=== PATIENT | male | born 1950 | race Caucasian/White ===

== ENCOUNTER 2017-07-20 18:43 | Inpatient (IN) ==
--- NOTE | 2017-07-20 19:13 | Emergency Department Note ---
Disposition Clinical Impression: Pancreatitis Disposition: Admitted As Inpatient Condition: Good Reasons to Return/Additional Instructions: your blood pressure was elevated today so please follow up with your family doctor for a recheck Referrals: Humphrey Shipley DO [Primary Care Provider] - Forms: ED Satisfaction Letter, Work/School Release Time of Disposition: 21:44 Abdominal Pain HPI - General Chief Complaint: ED Abdominal Pain Stated Complaint: Abdominal Pain, Back Pain Time Seen by Provider: 07/20/17 19:00 Source: patient, EMS Mode of arrival: ambulatory Limitations: no limitations Nursing Notes Reviewed: Yes Vital Signs Reviewed: Yes - History of Present Illness Pt Subjective Complaint: abdominal pain Onset (ago): hour(s) (sveral) Consistency: intermittent Pain Severity: moderate Pain Scale: 2 Quality: cannot describe Improves with: nothing Worsens with: nothing Associated symptoms: Denies: nausea, vomiting, diarrhea, fever, chills, constipation, dysuria - Related Data Home Medications Medication Instructions Recorded Confirmed DiphenhydraMINE [Benadryl] 1 cap PO HS 07/20/17 07/20/17 Losartan/Hydrochlorothiazide 1 each PO DAILY 07/20/17 07/20/17 [Hyzaar 100-12.5 Tablet] Ranitidine HCl [Zantac] 150 mg PO BID 07/20/17 07/20/17 Allergies Allergy/AdvReac Type Severity Reaction Status Date / Time No Known Allergies Allergy Verified 06/22/15 14:47 All systems ED: reviewed and negative except as stated. Limitations: ROS unobtainable due to patients medical condition (patients family provides the information secondary to the patients chronic ) Constitutional: Denies: fever, chills, weakness, weight change Gastrointestinal: Reports: abdominal pain. Denies: nausea, vomiting Abdominal Pain PMH - Past Medical History Medical history: Reports: arthritis, hypertension, myocardial infarction, other (Cerebral palsy) Male Surgical History: Reports: orthopedic, other Psychiatric history: Reports: no psych history - Social History Smoking status: Never smoker Alcohol use: Reports: none Drug use: Reports: none Physical Exam - General Limitations: physical limitation, other General appearance: alert - Head Head exam: atraumatic, normocephalic, normal inspection - Eye Eye exam: Present: normal appearance, PERRL, EOMI - ENT ENT exam: normal exam, normal oropharynx, mucous membranes moist - Neck Neck exam: Present: normal inspection, full ROM, trachea midline - Chest Chest inspection: Present: normal inspection, symmetric chest wall rise - Respiratory Respiratory exam: Present: normal lung sounds bilaterally - Cardiovascular Cardiovascular exam: Present: regular rate, normal rhythm, normal heart sounds - Abdominal Exam Abdominal exam: Present: soft, tenderness, normal bowel sounds - Neurological Exam Neurological exam: Present: alert, oriented X3 - Psychiatric Psychiatric exam: Present: normal affect, normal mood - Skin Skin exam: Present: warm, dry, intact Course Vital Signs Temperature 97.4 F L 07/20/17 18:49 Pulse Rate 105 07/20/17 18:49 Respiratory Rate 14 07/20/17 18:49 Blood Pressure 135/75 07/20/17 18:49 O2 Sat by Pulse Oximetry 89 07/20/17 18:49 Temperature 97.4 F L 07/20/17 18:49 Pulse Rate 105 07/20/17 18:49 Respiratory Rate 14 07/20/17 18:49 Blood Pressure 135/75 07/20/17 18:49 O2 Sat by Pulse Oximetry 89 07/20/17 18:49 Oxygen Delivery Oxygen Delivery Nasal Cannula Abdominal Pain - MDM Narrative Medical decision making narrative: Case was discussed with Dr. Hutton who accepts admission. - Differential Diagnosis Differential Diagnosis: Likely: AAA, diverticulitis, diverticulosis - Lab Data Lab results reviewed: Yes I reviewed the patient's lab results. Result diagrams: 07/20/17 19:22 07/20/17 19:22 Lab Results 07/20/17 07/20/17 07/20/17 Range/Units 19:22 19:22 19:22 WBC 8.5 (4.3-11.1) K/mcL RBC 4.59 (4.19-5.50) M/mcL Hgb 14.7 (12.9-16.9) g/dL Hct 42.2 (37.5-50.1) % MCV 91.9 (83.0-100.0) fL MCH 32.0 (28.0-33.3) pg MCHC 34.8 (31.6-35.5) g/dL RDW 12.8 (11.5-14.5) % Plt Count 233 (140-400) K/mcL MPV 9.2 L (9.4-12.4) fL Immature Gran % 0.4 (0-4) % Seg Neutrophils % 91.0 % Lymphocytes % 7.2 % Monocytes % 1.1 % Eosinophils % 0.1 % Basophils % 0.2 % Neutrophils # 7.8 (1.6-8.9) K/mcL Lymphocytes # 0.6 (0.6-4.6) K/mcL Monocytes # 0.1 (0.0-1.3) K/mcL Eosinophils # 0.0 (0.0-0.6) K/mcL Basophils # 0.0 (0.0-0.2) K/mcL Sodium 141 (136-145) mEq/L Potassium 3.6 (3.5-4.5) mEq/L Chloride 101 (98-109) mEq/L Carbon Dioxide 27 (19-29) mEq/L BUN 16 (8-26) mg/dL Creatinine 1.64 H (0.72-1.25) mg/dL Est GFR ( Amer) 51 L (> 60) Est GFR (Non-Af Amer) 42 L (> 60) BUN/Creatinine Ratio 10 (6-26) Glucose 190 H (70-99) mg/dL Calculated Osmolality 298 (280-300) Calcium 10.1 (8.6-10.8) mg/dL Total Bilirubin 1.6 H (0.2-1.2) mg/dL AST 801 H (5-34) Units/L ALT 461 H (0-55) Units/L Alkaline Phosphatase 130 H (38-126) Units/L Troponin I 0.02 (0-0.03) ng/mL Serum Total Protein 7.3 (6.0-8.3) g/dL Albumin 3.7 (3.5-5.0) g/dL Globulin 3.6 H (2.4-3.5) g/dL Albumin/Globulin Ratio 1.0 L (1.1-2.2) Amylase 662 H (25-125) Units/L - Radiology Data Radiology results reviewed: Yes I reviewed the patient's radiology results. - EKG Data EKG attestation: Yes I reviewed and interpreted this EKG. EKG results narrative: EKG shows a relative sinus tachycardia with a rate of [address] elevation. Some poor R-wave progression noted QRS duration 85 ms R axis is -6 degrees
[2017-07-20 19:32] LABS: Basophils % 0.2 %; Eosinophils % 0.1 %; Hematocrit 42.2 % (37.5-50.1); Hemoglobin 14.7 g/dL (12.9-16.9); Immature Granulocytes % 0.4 % (0-4); Lymphocytes # 0.6 K/mcL (0.6-4.6); Lymphocytes % 7.2 %; Mean Corpuscular HGB Conc 34.8 g/dL (31.6-35.5); Mean Corpuscular Volume 91.9 fL (83.0-100.0); Mean Platelet Volume 9.2 fL (9.4-12.4); Monocytes # 0.1 K/mcL (0.0-1.3); Monocytes % 1.1 %; Neutrophils # 7.8 K/mcL (1.6-8.9); Platelet Count 233 K/mcL (140-400); Red Blood Count 4.59 M/mcL (4.19-5.50); Red Cell Distribution Width 12.8 % (11.5-14.5)
[2017-07-20 19:54] LABS: Albumin 3.7 g/dL (3.5-5.0); Bilirubin,Total 1.6 mg/dL (0.2-1.2); Calcium 10.1 mg/dL (8.6-10.8); Globulin 3.6 g/dL (2.4-3.5); Potassium 3.6 mEq/L (3.5-4.5); Total Protein 7.3 g/dL (6.0-8.3)
[2017-07-20 20:42] LABS: Bilirubin,Urine Negative (Negative); Blood,Urine Negative (Negative); Clarity,Urine Clear (Clear); Color,Urine Yellow (Yellow); Glucose,Urine (UA) Normal (Normal); Ketones,Urine Negative (Negative); Leukocyte Esterase,Urine Negative (Negative); Nitrite,Urine Negative (Negative); Protein,Urine Negative (Neg-Trace); Urobilinogen,Urine Normal (Normal)
[2017-07-20] MEDS ORDERED: *HR* HYDROmorphone (PF) 1 MG/ML SYRINGE IVP ONE (21:18)
[2017-07-20] MEDS ORDERED: Ondansetron 4 MG/2 ML VIAL IVP ONE (21:18)
[2017-07-20] MEDS ORDERED: Ondansetron 4 MG/2 ML VIAL ONE (21:57)
[2017-07-20] MEDS: Ondansetron 4 MG/2 ML VIAL IVP ONE ×2 (21:59→22:05)
[2017-07-20] MEDS ORDERED: *HR* HYDROmorphone (PF) 1 MG/ML SYRINGE IVP PRN (22:51)
[2017-07-20] MEDS: *HR* Promethazine 25 MG/ML VIAL IVP PRN (23:21)
[2017-07-21] MEDS: *HR* Promethazine 25 MG/ML VIAL IVP PRN (05:18)
[2017-07-21] MEDS ORDERED: Ondansetron 4 MG/2 ML VIAL IVP PRN (07:20)
--- NOTE | 2017-07-21 11:57 | Internal Med History&Physical ---
Date of Encounter: 07/21/17 Time of Encounter: 11:15 Assessment and Plan (1) Abdominal pain Current visit: Yes Status: Acute Lab review shows significant elevation of lipase, amylase, and LFTs. The abdominal pelvic CT however did not show abnormalities of the pancreas or biliary tract dilatation. An abdominal ultrasound has been ordered for further evaluation. Repeat labs will be done in a.m. Hyzaar will be held and IV fluids given. Qualifiers: Abdominal location: lower abdomen, unspecified Qualified Code(s): R10.30 - Lower abdominal pain, unspecified (2) CKD (chronic kidney disease) stage 3, GFR 30-59 ml/min Current visit: Yes Status: Acute Presumed. Will hold Hyzaar and give IV fluids and recheck labs in a.m. (3) Hypertension Current visit: Yes Status: Chronic We will hold Hyzaar due to azotemia and monitor blood pressure. Qualifiers: Hypertension type: essential hypertension Qualified Code(s): I10 - Essential (primary) hypertension Internal Medicine - H&P: HPI Chief complaint: Abdominal pain and vomiting Admitted From: Home Plans for Post Hospital Care: Home History of present illness: Mr. Brown is a 66 year old male who came to emergency room after he had complaints of abdominal pain and an episode of vomiting at home. He was evaluated in emergency room and found to have significant elevations of amylase , lipase, and transaminases. Abdominal CT did not show pancreatic or biliary abnormality other than questionable thickening of the gallbladder wall circumferentially. He was admitted to [facility] floor for ongoing care needs. He has cerebral palsy and could not give any reliable history. His family reports he had similar pain complaints in 2016 and underwent evaluation [facility] [place]. Family was told there was a small abdominal aortic aneurysm present. No other explanation was offered for his abdominal pain. He has continued to have occasional episodes of abdominal pain but frequently seemed to improve after having a bowel movement. He does not have diagnosed disorders of his liver gallbladder or exocrine pancreas. Past Med Surg Social Fam HX - Past Medical History Medical history: aortic aneurysm, arthritis, hypertension, myocardial infarction , other Psychiatric history: no psych history - Past Surgical History Surgical History: no surgical history - Social History Smoking Status: Never smoker Smokeless Tobacco Status: No Alcohol use: none Drug use: none Internal Medicine - H&P: Meds DiphenhydraMINE [Benadryl] 1 cap PO HS 07/20/17 [History] Losartan/Hydrochlorothiazide [Hyzaar 100-12.5 Tablet] 1 each PO DAILY 07/20/17 [ History] Ranitidine HCl [Zantac] 150 mg PO BID 07/20/17 [History] 3 Allergy/AdvReac Type Severity Reaction Status Date / Time No Known Allergies Allergy Verified 06/22/15 14:47 All Systems PM: A 10-system review of systems was performed and is negative for pertinent findings except as documented above in the HPI. Review of systems: Review of systems is obtained from family members since the patient could not give reliable history. Gen.: His weight has been stable past months Cardiovascular: He has a history of hypertension but no documented heart failure DVT or pulmonary embolus. There was a questionable [place] approximately year 1999. Respiratory: He is a lifelong nonsmoker and has no known chronic lung disease GI: As per history of present illness : He has had right renal cyst documented on September [address] that appeared stable at 4.[address] scan done last evening in the emergency room. He had slight prostate enlargement on CT. He does not have other known kidney bladder prostate disorders. Neurologic: He has cerebral palsy. There have been no large distribution strokes or seizures. Endocrine: There is no known diabetes thyroid disease or hyperlipidemia Hematology/oncology: He has been diagnosed with mycosis fungoides. There is no other known anemia or internal malignancies. Psychiatric: There is no known anxiety depression or other mental health issues Musk skeletal: He has DJD but no known gout other bone joint or muscle disorders. - Constitutional Vitals: Temp Pulse Resp BP Pulse Ox 98.9 F 89 18 119/72 98 07/21/17 08:00 07/21/17 08:00 07/21/17 08:00 07/21/17 08:00 07/21/17 08:00 Exam: Gen.: He is a well-developed well-nourished male sitting in a chair at bedside who appears in no acute distress HEENT: Head is atraumatic and normal cephalic. Eyes: He has a disconjugate gaze appears to have right exotropia. There is no scleral icterus. Mouth: Mucosa is moist Neck: Supple and nontender. There is no thyromegaly or adenopathy noted. Heart: Regular without murmurs gallops or ectopics Lungs: No wheezes or crackles are heard. Abdomen: Soft and nontender. No masses or guarding are noted. Exam is limited because he is in the seated position. Extremities: There is no cyanosis or edema noted. He has bilateral foot deformities. He is nonambulatory. Dorsalis pedis and posterior tibial pulses are trace palpable bilaterally. Neurologic: Mental status: He could not give reliable history. He follows commands generally. He is able to answer a few yes/no questions. Cranial nerves: Smile is symmetric. Forehead wrinkles bilaterally. Tongue protrudes midline. EOMI. Motor: He does not understand holding his arms outstretched test for pronator drift. Cerebellar: Not tested Skin: He has erythema of his feet and lower abdominal wall consistent with mycosis fungoides. Internal Med - H&P Results - Labs CBC & Chem 7: 07/20/17 19:22 07/20/17 19:22 - VTE Reasons for not Prescribing Prophylaxis: Treatment not Indicated - Low risk for VTE
[2017-07-21] MEDS: 0.45 % Sodium Chloride w/KCl 20 MEQ/1,000 ML MLS IVC SCH ×2 (12:29→23:55)
--- NOTE | 2017-07-21 12:38 | Electrocardiograph Report ---
[address] [place], [place] [address] Test Date: 2017-07-20 Pat Name: Khadar Brown Department: 9201 Room: [facility] Gender: M [employer]: GUALBERTO : 1950 Requested By: Major Call Order Number: [id number] Reading MD: Monisha Brooks Measurements Intervals [place] Rate: 105 P: 8 [place]: 210 QRS: -6 QRSD: 85 T: -8 QT: 327 QTc: 388 Interpretive Statements SINUS TACHYCARDIA WITH FIRST DEGREE AV BLOCK SEPTAL MYOCARDIAL INFARCTION, OF INDETERMINATE AGE INFERIOR MYOCARDIAL INFARCTION, PROBABLY OLD Electronically Signed On 07-21-2017 12:37:20 EDT by Monisha Brooks
[2017-07-21] MEDS ORDERED: Acetaminophen 325 MG TABLET PO PRN (20:49)
[2017-07-22 05:32] LABS: Basophils % 0.3 %; Eosinophils # 0.3 K/mcL (0.0-0.6); Eosinophils % 2.6 %; Hematocrit 35.9 % (37.5-50.1); Hemoglobin 12.4 g/dL (12.9-16.9); Immature Granulocytes % 0.3 % (0-4); Lymphocytes # 1.1 K/mcL (0.6-4.6); Lymphocytes % 11.3 %; Mean Corpuscular HGB Conc 34.5 g/dL (31.6-35.5); Mean Corpuscular Hemoglobin 31.7 pg (28.0-33.3); Mean Corpuscular Volume 91.8 fL (83.0-100.0); Mean Platelet Volume 9.9 fL (9.4-12.4); Monocytes # 0.6 K/mcL (0.0-1.3); Monocytes % 5.8 %; Neutrophils # 7.8 K/mcL (1.6-8.9); Platelet Count 196 K/mcL (140-400); Red Blood Count 3.91 M/mcL (4.19-5.50); Red Cell Distribution Width 13.2 % (11.5-14.5); Segmented Neutrophils % 79.7 %
[2017-07-22 05:54] LABS: Albumin/Globulin Ratio 0.9 (1.1-2.2); Bilirubin,Total 1.3 mg/dL (0.2-1.2); Globulin 3.2 g/dL (2.4-3.5); Potassium 3.5 mEq/L (3.5-4.5); Total Protein 6.2 g/dL (6.0-8.3)
[2017-07-22 07:15] VITALS: BP 136/82
--- NOTE | 2017-07-22 10:18 | Discharge Summary ---
Date of Encounter: 07/22/17 Time of Encounter: 10:00 - Discharge Diagnosis (1) Abdominal pain Priority: Primary Status: Acute Qualifiers: Abdominal location: lower abdomen, unspecified Qualified Code(s): R10.30 - Lower abdominal pain, unspecified (2) CKD (chronic kidney disease) stage 3, GFR 30-59 ml/min Priority: Secondary Status: Chronic (3) Hypertension Priority: Secondary Status: Chronic Qualifiers: Hypertension type: essential hypertension Qualified Code(s): I10 - Essential (primary) hypertension - Discharge Medications Home Medications: DiphenhydraMINE [Benadryl] 1 cap PO HS 07/20/17 [History] Ranitidine HCl [Zantac] 150 mg PO BID 07/20/17 [History] Allergies/Adverse Reactions: 3 Allergy/AdvReac Type Severity Reaction Status Date / Time No Known Allergies Allergy Verified 06/22/15 14:47 Date of admission: 07/21/17 11:53 Primary care physician: Humphrey Shipley DO - Patient Status Disposition: Home, Self-Care Condition: Good Overall status at discharge: patient is progressing back to baseline - Discharge Instructions Follow Up With: Humphrey Shipley DO [Primary Care Provider] - 1 week Additional Instructions: your blood pressure was elevated today so please follow up with your family doctor for a recheck - Diet and Activity Activity: resume usual activities as tolerated Diet: advance to your usual diet Hospital course: Mr. Brown is a 66 year old male who came to emergency room after he had complaints of abdominal pain and an episode of vomiting at home. He was evaluated in emergency room and found to have significant elevations of amylase , lipase, and transaminases. Abdominal CT did not show pancreatic or biliary abnormality other than questionable thickening of the gallbladder wall circumferentially. He was admitted to [facility] [place] for ongoing care needs. Initial orders were written by the emergency room physician. I saw him on July 21 and performed the history and physical. Abdominal ultrasound was ordered to further evaluate his pain. 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 I explained to the family he should be referred to a surgeon for evaluation for cholecystectomy since this is his third episode of abdominal pain. His diet was advanced to clear liquids and tolerated well. He had significant improvement in his lipase with decreased to 160 by the day of discharge. There was also significant improvement in his bilirubin and transaminases. He felt stable for discharge home. He will follow with his PCP Dr. Shipley within 1 week. Hyzaar was held because of significant fluctuation in blood pressure. He will remain off this at discharge and Dr. Shipley can monitor his blood pressure and azotemia. - Time Spent with Patient Total time spent providing and/or coordinating discharge services: - Constitutional Vitals: Temp Pulse Resp BP Pulse Ox 98.1 F 86 16 136/82 93 07/22/17 07:00 07/22/17 07:00 07/22/17 07:00 07/22/17 07:00 07/22/17 07:00 - VTE Reasons for not Prescribing Prophylaxis: Treatment not Indicated - Low risk for VTE
== END 2017-07-22 11:10 | disposition home or self-care (01) | DRG 445 ==
LOC: INPPIK 18:43 → EMEROOPIK 18:43 → INPPIK 22:27
PROVIDERS: ADMIT Internal Medicine; ATTEND Internal Medicine